=== PATIENT | male | born 1970 | race Caucasian/White ===

== ENCOUNTER 2020-06-27 10:57 | Outpatient (REF) | payer BC, SELFPAY ==
[2020-06-27 15:26] LABS: Alanine Aminotransferase 26 U/L (0-40); Albumin Level 4.4 g/dL (3.5-5.0); Alkaline Phosphatase 84 U/L (39-117); Anion Gap 17 (12-20); Aspartate Amino Transferase 21 U/L (5-37); Bilirubin Total 0.6 mg/dL (0.0-1.0); Blood Urea Nitrogen 17 mg/dL (9-16); Calcium 9.5 mg/dL (8.4-10.2); Carbon Dioxide 30 mmol/L (22-29); Chloride 97 mmol/L (96-108); Cholesterol 228 mg/dL; Estimated Glomerular Filt Rate > 60; Glucose Fasting 103 mg/dL (60-99); HDL Cholesterol 44 mg/dL; Potassium 4.2 mmol/l (3.3-5.1); Sodium 140 mmol/L (135-145); Total Protein 7.6 g/dL (6.5-8.0); Triglycerides 731 mg/dL; Uric Acid 11.6 mg/dL (3.4-7.0)
[2020-06-27 15:30] LABS: PSA,Total (Free>4and<10) 0.56 ng/mL (0.00-4.00); TSH reflex Free T4 1.18 mIU/mL (0.32-4.0)
== END 2020-06-27 10:58 | disposition home or self-care (01) ==
LOC: HO.HMGCLDS 10:57
PROVIDERS: PCP Family Medicine; Visit Provider Family Medicine
DX: Z00.00 Encounter for general adult medical examination without abnormal findings (principal); Z12.5 Encounter for screening for malignant neoplasm of prostate; M10.9 Gout, unspecified
CPT/HCPCS: 80053; 80061; 84153; 84443; 84550

== ENCOUNTER 2020-06-28 13:14 | Outpatient (REF) | payer BC, SELFPAY ==
[2020-06-29 13:26] LABS: Creatinine Urine 122.45 mg/dL
[2020-06-30 07:54] LABS: Microalbum/Creatinine Ratio Ur 17.1 ug/mg cr
== END 2020-06-28 13:15 | disposition home or self-care (01) ==
LOC: CF 13:14
PROVIDERS: PCP Family Medicine; Referring Provider Family Medicine; Visit Provider Surgery
DX: K42.9 Umbilical hernia without obstruction or gangrene (principal); F17.200 Nicotine dependence, unspecified, uncomplicated; Z79.899 Other long term (current) drug therapy
CPT/HCPCS: 82043

== ENCOUNTER 2020-07-25 06:07 | Day surgery (SDC) | payer BC, SELFPAY ==
[2020-07-15 11:16] VITALS: BMI 36.9
--- NOTE | 2020-07-20 09:46 | HO.ANESPROP2 ---
Documented by User: Heavenly Krissy 07/20/20 09:48 HPI - Anesthesia Eval Consult details Narrative: 49yo M for Hernia Repair Umbilical *ETOH* PMFSH Past Medical History Medical History Essential hypertension ETOH abuse Gout Hx of gout Hypertriglyceridemia Lab test negative for COVID-19 virus Obesity Smoker Family History Family History Maternal Grandmother History of mouth cancer Surgical History Surgical History No history of previous surgery Social History Social History Are you a primary care information associate to a significant other at home: No Do you presently have visiting nurse or other home services: No Alcohol intake: current Alcohol intake frequency: 3 or more drinks per day Alcohol type: beer and hard liquor Smoking Status: Current every day smoker Packs Per Day: 1 Cigarettes Per Day: 20.0 Years Smoked: 30 Smoked in Last 30 Days: Yes Patient Given Instructions on How to Stop Smoking: Yes Date Education Initiated: 07/15/20 Use of substances other than those prescribed or required for medical reasons: Yes Substance Use Type: Marijuana Substance Use Frequency: Occasionally Have you been hit, kicked, punched, or otherwise hurt by someone within the past year? If so, by whom?: No Advance Directives Information Provided: No Recently lost weight without trying: No Meds Allergies Allergy/AdvReac Type Severity Reaction Status Date / Time No Known Allergies Allergy Verified 07/15/20 11:23 [No Known Allergies*] Home Medications Medication Instructions Recorded Confirmed Type ibuprofen 200 mg tablet 400 mg PO Q8H 06/14/20 07/15/20 History Exam Exam Date and Time: July 20, 2020 0946 Height,Weight and Vital Signs: Height 5 ft 11 in Weight 120.202 kg Pertinent Lab Results Pertinent Lab Results: Laboratory Tests 06/27/20 11:04 Sodium 140 Potassium 4.2 Chloride 97 Carbon Dioxide 30 H BUN 17 H Creatinine 1.05 Assessment and Plan Assessment Anesthesia Assessment: Chart Reviewed Documented by User: Manjinder Gutierrez MD 07/25/20 07:47 PMFSH Past Medical History Medical History Essential hypertension ETOH abuse Gout Hx of gout Hypertriglyceridemia Lab test negative for COVID-19 virus Obesity Smoker Family History Family History Maternal Grandmother History of mouth cancer Surgical History Surgical History No history of previous surgery Social History Social History Are you a primary care information associate to a significant other at home: No Do you presently have visiting nurse or other home services: No Alcohol intake: current Alcohol intake frequency: 3 or more drinks per day Alcohol type: beer and hard liquor Smoking Status: Current every day smoker Packs Per Day: 1 Cigarettes Per Day: 20.0 Years Smoked: 30 Smoked in Last 30 Days: Yes Patient Given Instructions on How to Stop Smoking: Yes Date Education Initiated: 07/15/20 Use of substances other than those prescribed or required for medical reasons: Yes Substance Use Type: Marijuana Substance Use Frequency: Occasionally Have you been hit, kicked, punched, or otherwise hurt by someone within the past year? If so, by whom?: No Advance Directives Information Provided: No Recently lost weight without trying: No Meds Allergies Allergy/AdvReac Type Severity Reaction Status Date / Time No Known Allergies Allergy Verified 07/15/20 11:23 [No Known Allergies*] Home Medications Medication Instructions Recorded Confirmed Type ibuprofen 200 mg tablet 400 mg PO Q8H 06/14/20 07/15/20 History Exam Airway Mallampati Class: II TM Dist: >3cm Neck ROM: Full Denture: Upper Heart: RRR Lungs: Productive cough, runny nose Assessment and Plan Assessment Anesthesia Assessment: Anesthesia Plan Discussed and Chart Reviewed Final Anesthetic Review NPO: Yes ASA Class: III Final Preanesthetic Review: No Changes in Pt Med Stat, Meds/Allgs Chart Reviewed, Consent Obtained/Reviewed and Anes Risks/Benef Reviewed Patient Risk: Intermediate Procedure Risk: Low Anesthetic Plan Anesthetic Plan: GA Disposition: Standard PACU
[2020-07-25 06:31] VITALS: BP 123/97; PULSE 98; RESP 16; TEMP 36.3; O2SAT 97
[2020-07-25] MEDS: ceFAZolin Sodium/Dextrose,Iso 2 GM/50 ML PIGGYBACK IV (06:33)
[2020-07-25] MEDS: Lactated Ringers 1,000 ML 100 ML IVCONT (06:33)
--- NOTE | 2020-07-25 07:13 | MHC.SHP ---
Pre-Procedural Eval Section A The patient is an INPATIENT: No Changes since office visit: Yes Patient answered all questions; No Cold of Flu in the past 2 weeks, No New Medical Problems and No Changes in Medication The History & Physical has been completed within 30 days and I have reviewed it.: Yes Section B Chief Complaint: Umbilical Hernia Allergies: Allergies Allergy/AdvReac Type Severity Reaction Status Date / Time No Known Allergies Allergy Verified 07/15/20 11:23 [No Known Allergies*] Plan Diagnosis/Plan: Unchanged I have reviewed the history and physical and performed a pertinent physical examination on my patient. No changes have occurred unless specified.
--- NOTE | 2020-07-25 07:14 | W.PM.OPN ---
Operative Note Operative Note Date of Service: 07/25/20 Narrative: Preoperative diagnosis: Umbilical hernia Postoperative diagnosis: Same Procedure: Repair of umbilical hernia with mesh Surgeon: Deshawn Gottlieb MD Group Fitness Manager: JULIANNE Sloan Anesthesia: General LMA Indications for procedure: 49-year-old male patient presenting with a enlarging lump the umbilicus which is causing some discomfort. Examination is consistent with an umbilical hernia. Operative findings: Patient was found to have an incarcerated umbilical hernia containing omental fat. This was repaired using a 6.[address] mesh. Specimen: Hernia sac Estimated blood loss: 5 mL Complications: None Procedure details: Patient was brought to the OR and placed in a supine position. After administering general anesthesia the patient's abdomen was prepped with ChloraPrep and draped in a sterile fashion. A surgical time-out was called and consent confirmed. Patient received preoperative antibiotics and Venodyne boots were in place. Local anesthesia consisting of 0.75% Sensorcaine was then infiltrated the periumbilical region. A curvilinear incision was made around the umbilicus in the midline carried out through subcutaneous tissue and up to the hernia sac. The sac was dissected free from the surrounding subcutaneous tissue down to the fascial edge. The sac was entered and incarcerated omental fat encountered. This was a freed from the overlying peritoneal sac. The sac was sent to pathology for further examination. No fluid or ascites was encountered during the procedure. The omental fat was returned to the abdominal cavity. A preperitoneal space was then created using blunt dissection. The 6.4 cm circular mesh was then obtained. Four quadrants sutures consisting of 1. Tycron suture were placed at the 1236 and 9 o'clock position. This was then parachute into the abdominal preperitoneal space. The sutures were then tied. Special care was used to assure the mesh was lying flat against the fascia. Fascia was then closed over the mesh using [id number] 1. Tycron sutures incorporating the mesh in the closure. Wounds were then irrigated with saline and suctioned dry. Additional local was infiltrated in the subcutaneous and muscular tissue. Umbilical skin was then reattached to the fascia using a 3-0 Polysorb suture. Dermis was reapproximated using interrupted 3-0 Polysorb sutures. Skin was then closed using a running subcuticular 4-0 Polysorb suture. Steri-Strips 2 x 2 gauze and Tegaderm were then applied. The patient tolerated the procedure well. Sponge, instrument, needle counts reported as correct. The patient was transferred to PACU in stable condition.
--- NOTE | 2020-07-25 08:24 | P.BOP_ITS ---
Brief Operative Note Date of Service: 07/25/20 Pre-op diagnosis: Umbilical hernia Post-op diagnosis: same Procedure: Repair of umbilical hernia with mesh Implants: 6.4 cm round Ventralex mesh Surgeon: Deshawn Gottlieb MD Anesthesia: GLMA Plastic Molding Operator: [address] Estimated blood loss (mL): 5 Pathology: other (Hernia sac) Condition: stable Disposition: PACU
[2020-07-25 08:40] VITALS: BP 121/72; PULSE 105; RESP 20; TEMP 36.3; O2SAT 94
[2020-07-25 08:45] VITALS: BP 109/58; PULSE 99; RESP 16; O2SAT 94
[2020-07-25 08:50] VITALS: BP 125/73; PULSE 94; RESP 14; O2SAT 94
[2020-07-25 08:55] VITALS: BP 135/72; PULSE 94; RESP 18; O2SAT 93
[2020-07-25 09:10] VITALS: BP 117/73; PULSE 92; RESP 16; TEMP 36.3; O2SAT 96
[2020-07-25] MEDS: Acetaminophen 325 MG TABLET 650 MG PO (09:10)
[2020-07-25] MEDS: oxyCODONE HCl Immed Release 5 MG TABLET PO (09:20)
--- NOTE | 2020-07-25 09:55 | HO.POSTANES ---
Post Anesthesia Evaluation Post Anesthesia Evaluation Vital Signs: Vital Signs Temp Pulse Resp BP Pulse Ox 07/25/20 09:10 97.4 F 92 16 117/73 96 07/25/20 08:55 94 18 135/72 93 07/25/20 08:50 94 14 125/73 94 07/25/20 08:45 99 16 109/58 L 94 07/25/20 08:40 97.4 F 105 H 20 121/72 94 07/25/20 06:31 97.3 F 98 16 123/97 H 97 Anesthesia: General LMA Mental Status: Awake Pain Control: Satisfactory Nausea/Vomiting: None Hydration: Adequate Anesthesia-Related Issues: No Anes. Related Issues
== END 2020-07-25 09:37 | disposition home or self-care (01) ==
PROVIDERS: PCP Family Medicine; Visit Provider Surgery
PROC: (CPT 49587; principal; 2020-07-25 07:30)
DX: K46.0 Unspecified abdominal hernia with obstruction, without gangrene (principal); I10 Essential (primary) hypertension; E66.9 Obesity, unspecified; Z68.35 Body mass index [BMI] 35.0-35.9, adult; F17.210 Nicotine dependence, cigarettes, uncomplicated; F10.10 Alcohol abuse, uncomplicated
CPT/HCPCS: 49587; 88302; C1781; J0690; J1100; J2250; J2370; J2405; J3010

== ENCOUNTER → 2020-08-03 09:43 | Outpatient (BNVA) | payer BC, SELFPAY | PROVIDERS: PCP Family Medicine; Visit Provider Surgery | DX: Z76.89 Persons encountering health services in other specified circumstances (principal) ==

== ENCOUNTER 2020-08-12 09:53 | Outpatient (REF) | payer BC, SELFPAY ==
[2020-08-12 12:27] LABS: Alanine Aminotransferase 14 U/L (0-40); Albumin Level 4.5 g/dL (3.5-5.0); Alkaline Phosphatase 83 U/L (39-117); Anion Gap 18 (12-20); Aspartate Amino Transferase 15 U/L (5-37); Bilirubin Total 0.5 mg/dL (0.0-1.0); Blood Urea Nitrogen 17 mg/dL (9-16); Calcium 9.6 mg/dL (8.4-10.2); Carbon Dioxide 26 mmol/L (22-29); Chloride 100 mmol/L (96-108); Cholesterol 241 mg/dL; Estimated Glomerular Filt Rate > 60; Glucose Fasting 96 mg/dL (60-99); HDL Cholesterol 46 mg/dL; LDL Cholesterol Calculated 146 mg/dl; Potassium 4.8 mmol/l (3.3-5.1); Sodium 139 mmol/L (135-145); Total Protein 7.4 g/dL (6.5-8.0); Triglycerides 247 mg/dL; Uric Acid 6.2 mg/dL (3.4-7.0)
== END 2020-08-12 09:54 | disposition home or self-care (01) ==
LOC: HO.HMGCLDS 09:53
PROVIDERS: PCP Family Medicine; Visit Provider Family Medicine
DX: Z00.00 Encounter for general adult medical examination without abnormal findings (principal); M10.9 Gout, unspecified; E78.1 Pure hyperglyceridemia
CPT/HCPCS: 36415; 80053; 80061; 84550

== ENCOUNTER 2021-01-20 09:20 | Outpatient (REF) | payer BC, SELFPAY ==
[2021-01-20 11:43] LABS: Alanine Aminotransferase 9 U/L (0-40); Albumin Level 4.5 g/dL (3.5-5.0); Alkaline Phosphatase 93 U/L (39-117); Anion Gap 17 (12-20); Aspartate Amino Transferase 16 U/L (5-37); Bilirubin Total 0.2 mg/dL (0.0-1.0); Blood Urea Nitrogen 13 mg/dL (9-16); Calcium 9.3 mg/dL (8.4-10.2); Carbon Dioxide 23 mmol/L (22-29); Chloride 103 mmol/L (96-108); Cholesterol 221 mg/dL; Estimated Glomerular Filt Rate > 60; Glucose Fasting 87 mg/dL (60-99); HDL Cholesterol 46 mg/dL; LDL Cholesterol Calculated 121 mg/dl; Potassium 4.5 mmol/L (3.3-5.1); Sodium 138 mmol/L (135-145); Total Protein 7.5 g/dL (6.5-8.0); Triglycerides 272 mg/dL
== END 2021-01-20 09:21 | disposition home or self-care (01) ==
LOC: HO.HMGCLDS 09:20
PROVIDERS: PCP Family Medicine; Visit Provider Family Medicine
DX: Z00.00 Encounter for general adult medical examination without abnormal findings (principal); I10 Essential (primary) hypertension; E78.1 Pure hyperglyceridemia; M10.9 Gout, unspecified
CPT/HCPCS: 36415; 80053; 80061; 84550

== ENCOUNTER 2021-02-21 12:41 | Outpatient (REF) | payer BC, SELFPAY ==
[2021-02-21 14:18] LABS: Cholesterol 202 mg/dL; HDL Cholesterol 46 mg/dL; LDL Cholesterol Calculated 110 mg/dl; Triglycerides 231 mg/dL; Uric Acid 3.9 mg/dL (3.4-7.0)
== END 2021-02-21 12:42 | disposition home or self-care (01) ==
LOC: HO.HMGCLDS 12:41
PROVIDERS: PCP Family Medicine; Visit Provider Family Medicine
DX: Z00.00 Encounter for general adult medical examination without abnormal findings (principal); E78.1 Pure hyperglyceridemia; M10.9 Gout, unspecified
CPT/HCPCS: 36415; 80061; 84550

== ENCOUNTER 2022-09-26 06:32 | Emergency (ER) | payer BC, SELFPAY ==
--- NOTE | ~2022-09-26 | CT_ITS ---
EXAMINATION: CT ABDOMEN AND PELVIS WITHOUT CONTRAST CLINICAL INFORMATION: Left flank pain. COMPARISON: CT scan of the abdomen and pelvis dated 11/17/2012. TECHNIQUE: Multidetector volumetric imaging was performed from the superior aspect of the liver through the pubic symphysis. Sagittal and coronal reformatted images were obtained on the technologist's workstation. Lack of intravenous and oral contrast limits visceral evaluation. This CT examination was performed using dose optimization techniques as appropriate, variously including the following: *Automated exposure control *Adjustment of mA and/or kV according to patient size (this includes techniques or standardized protocols for targeted exams where dose is matched to indication/reason for exam; i.e. extremities or head) *Use of iterative reconstruction technique DLP: 932 mGy-cm FINDINGS: LUNG BASES: The visualized lung bases are unremarkable. LIVER, GALLBLADDER, AND BILIARY TREE: Unremarkable. PANCREAS: Unremarkable. SPLEEN: Unremarkable. ADRENAL GLANDS: Unremarkable. 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 1.5 cm low-attenuation focus in the left kidney (image 85, series 6). BLADDER: Unremarkable. GASTROINTESTINAL TRACT: Very small hiatal hernia. The remainder of the stomach is unremarkable. The small bowel and appendix are unremarkable. Mild diverticulosis is seen in the colon most pronounced distally without ABDOMINAL WALL: No significant hernia is appreciated. LYMPH NODES: No lymphadenopathy. VASCULAR: Unremarkable. PELVIC VISCERA: Unremarkable. OSSEOUS STRUCTURES: Mild to moderate multilevel degenerative changes in the thoracolumbar spine most pronounced at L5-S1. CT/CT abdomen pelvis wo IV con IMPRESSION: 1. No acute intra-abdominal/pelvic abnormality to explain the patient's pain. No nephrolithiasis or hydroureteronephrosis. 1.5 cm low-attenuation focus in the left kidney is too small adequately characterize, but demonstrates benign features and likely represents a cyst not requiring follow-up at this time. 2. Very small hiatal hernia. 3. Mild colonic diverticulosis without evidence for acute diverticulitis.
[2022-09-26 07:12] VITALS: BP 158/91; PULSE 84; RESP 20; TEMP 36.4; O2SAT 97; BMI 37.6
[2022-09-26 07:27] LABS: MANUAL DIFF FLAG NO
[2022-09-26 07:32] LABS: Basophils Absolute Auto 0.1 X10*3/uL (0.0-0.2); Basophils Percent Auto 0.5 % (0-2); Eosinophils Absolute Auto 0.3 X10*3/uL (0.0-0.4); Eosinophils Percent Auto 2.3 % (0-4); Hematocrit 44.5 % (42.0-52.0); Imm Gran Abs Auto 0.07 X10*3/uL (0.00-0.03); Imm Gran Pct Auto 0.6 % (0.0-0.4); Lymphocytes Absolute Auto 2.3 X10*3/uL (1.2-4.9); Lymphocytes Percent Auto 18.4 % (20-40); Mean Corpuscular HGB Conc 33.7 g/dl (31.0-36.0); Mean Corpuscular Hemoglobin 30.4 pg (27.0-33.0); Mean Corpuscular Volume 90.1 fL (80.0-98.0); Mean Platelet Volume 8.5 fL (9.4-12.4); Monocytes Absolute Auto 1.2 X10*3/uL (0.1-1.2); Monocytes Percent Auto 9.5 % (2-11); Neutrophils Absolute Auto 8.6 x10*3/uL (2.0-8.3); Neutrophils Percent Auto 68.7 % (45-73); Platelet Count 397 X10*3/uL (160-400); Red Blood Count 4.94 X10*6/uL (4.60-5.80); Red Cell Distribution Width 13.8 % (11.0-16.0); White Blood Count 12.5 X10*3/uL (4.8-10.8)
[2022-09-26 07:40] LABS: Ethanol < 10 mg/dL
[2022-09-26 07:44] LABS: Alanine Aminotransferase 21 U/L (0-40); Albumin Level 4.2 g/dL (3.5-5.0); Alkaline Phosphatase 86 U/L (39-117); Anion Gap 16 (12-20); Aspartate Amino Transferase 18 U/L (5-37); Bilirubin Direct < 0.2 mg/dL (0.0-0.5); Bilirubin Total 0.4 mg/dL (0.0-1.0); Blood Urea Nitrogen 12 mg/dL (9-16); Calcium 9.4 mg/dL (8.4-10.2); Carbon Dioxide 25 mmol/L (22-29); Chloride 103 mmol/L (96-108); Creatinine Clr Calc Pharmacy 118.5; Estimated Glomerular Filt Rate > 60; Glucose Random 105 mg/dL (60-115); Lipase 18 U/L (8-78); Potassium 4.7 mmol/L (3.3-5.1); Sodium 139 mmol/L (135-145); Total Protein 7.1 g/dL (6.5-8.0)
[2022-09-26 08:32] VITALS: BP 144/84; PULSE 80; RESP 16; TEMP 36.3; O2SAT 96
[2022-09-26 10:52] VITALS: BP 171/81; PULSE 84; RESP 20; TEMP 37; O2SAT 97
--- NOTE | 2022-09-26 10:58 | ECG_ITS ---
Test Reason : CHEST PAIN Blood Pressure : / mmHG Vent. Rate : 086 BPM Atrial Rate : 086 BPM P-R Int : 136 ms QRS Dur : 094 ms QT Int : 348 ms P-R-T Axes : 054 046 068 degrees QTc Int : 416 ms Normal sinus rhythm Normal ECG No previous ECGs available Referred By: Sarbjit Andrews Electronically Signed By:SABA COBB MD
--- NOTE | 2022-09-26 11:08 | ED.ABDPAIN ---
HPI - Abdominal Pain General Chief Complaint: Abdominal Pain Stated Complaint: Rib pain/No Inj Time Seen by Provider: 09/26/22 10:19 Source: patient and old records reviewed Limitations: no limitations History of Present Illness HPI narrative: Patient is complaining of left upper abdominal pain which started a few days ago. It is now radiating to his left flank. No lower abdominal pain. It hurts when he moves. No nausea vomiting diarrhea constipation. No urinary symptoms. No prior history of similar issues. He states he is a daily drinker. No prior history of pancreatitis or hepatitis. No history of kidney stones He does have a history of gout. Daily smoker. Related Data Previous Rx's Medication Instructions Recorded indomethacin 50 mg capsule 50 mg PO TID 10 days #30 caps 08/12/20 prednisone 10 mg tablet See Rx Instructions PO DAILY 10 01/19/21 days #28 tabs allopurinol 300 mg tablet 300 mg PO DAILY 30 days #30 tabs 09/11/21 chlorthalidone 25 mg tablet 25 mg PO DAILY #30 tabs 09/11/21 gemfibrozil 600 mg tablet 600 mg PO BID #60 tabs 09/11/21 lisinopril 20 mg tablet 20 mg PO DAILY #30 tabs 10/09/21 cyclobenzaprine 10 mg tablet 10 mg PO TID PRN muscle spasm #20 09/26/22 tabs ibuprofen 800 mg tablet 800 mg PO Q8H PRN pain #30 tabs 09/26/22 Allergies Allergy/AdvReac Type Severity Reaction Status Date / Time No Known Allergies Allergy Verified 01/19/21 15:49 [No Known Allergies*] Review of Systems Comments: No fevers or chills Comments: No anterior chest pain Comments: No cough or dyspnea Comments: Abdominal pain is described Comments: No urinary symptoms Comments: Pain is described with movement. No midline CTL or S spine pain Comments: No rash Comments: No weakness PMFSH Past Medical History Medical History Essential hypertension ETOH abuse Gout Hx of gout Hypertriglyceridemia Lab test negative for COVID-19 virus Obesity Smoker Surgical History History of hernia surgery No history of previous surgery Family History Family History Maternal Grandmother History of mouth cancer Social History Social History Housing: Apartment Are you a primary spiritual care coordinator to a significant other at home: No Do you presently have visiting nurse or other home services: No Alcohol intake: current Alcohol intake frequency: 3 or more drinks per day Alcohol type: beer and hard liquor Patient Tobacco Use Status: Current everyday Tobacco user Cigarette Packs Per Day: 1 Cigarettes Per Day: 20.0 Years Smoked: 30 Smoked in Last 30 Days: Yes Substance Use Type: Crack/Cocaine and Marijuana Advance Directives: No Advance Directives Information Provided: No service: No Current occupational status: employed Physical Exam ED Vital Signs: Vital Signs - 24 hr 09/26/22 07:12 09/26/22 08:32 09/26/22 10:52 Temperature 97.5 F 97.4 F 98.6 F Pulse Rate 84 80 84 Respiratory Rate 20 16 20 Blood Pressure 158/91 H 144/84 H 171/81 H Pulse Oximetry 97 96 97 Oxygen Delivery Method Room Air Room Air Room Air 09/26/22 11:47 Temperature Pulse Rate 90 Respiratory Rate 20 Blood Pressure 139/85 Pulse Oximetry 96 Oxygen Delivery Method Room Air BMI result Body Mass Index 37.6 Const Other: Awake alert. Standing ambulatory without difficulty. No acute distress Neck Other: Normal Resp Other: Clear and equal bilaterally without wheezes rales or rhonchi Cardio Other: Regular rate and rhythm without murmurs rubs or gallops GI Other: Mild tenderness left upper abdomen near the costophrenic border. Some left flank tenderness to percussion. Pain is reproducible with palpation over the left thoracic paraspinous muscle at the level of T10. Skin Other: No rash Medical Decision Making Medical Decision Making MDM Narrative: Patient with left upper and left flank pain. Differential would include musculoskeletal pain, nephrolithiasis, pyelonephritis, urinary tract infection, pancreatitis, pneumonia, atypical cardiac presentation. 11:11. Lab work shows mildly elevated white count. Chemistries including lipase and LFTs are normal Awake EKG, troponin. CT scan ordered to rule out kidney stone or other pathology. 13:42. CT scan is normal. Urinalysis is normal. Labs are unremarkable. Patient stable for discharge home with a final diagnosis of musculoskeletal pain, flank and upper abdomen Lab Data 09/26/22 07:23 09/26/22 07:23 Labs: Lab Results 09/26/22 09/26/22 09/26/22 Range/Units 07:23 07:23 07:23 WBC 12.5 H (4.8-10.8) X10*3/uL RBC 4.94 (4.60-5.80) X10*6/uL Hgb 15.0 (14.0-18.0) g/dl Hct 44.5 (42.0-52.0) % MCV 90.1 (80.0-98.0) fL MCH 30.4 (27.0-33.0) pg MCHC 33.7 (31.0-36.0) g/dl RDW 13.8 (11.0-16.0) % Plt Count 397 (160-400) X10*3/uL MPV 8.5 L (9.4-12.4) fL Immature Gran % (Auto) 0.6 H (0.0-0.4) % Neut % (Auto) 68.7 (45-73) % Lymph % (Auto) 18.4 L (20-40) % [place] % (Auto) 9.5 (2-11) % Eos % (Auto) 2.3 (0-4) % Baso % (Auto) 0.5 (0-2) % Lymph # (Auto) 2.3 (1.2-4.9) X10*3/uL [place] # (Auto) 1.2 (0.1-1.2) X10*3/uL Eos # (Auto) 0.3 (0.0-0.4) X10*3/uL Baso # (Auto) 0.1 (0.0-0.2) X10*3/uL Abs Immat Gran (auto) 0.07 H (0.00-0.03) X10*3/uL Absolute Neuts (auto) 8.6 H (2.0-8.3) x10*3/uL Absolute Nucleated RBC 0.000 (0.0-0.012) X10*3/uL Nucleated RBC % (auto) 0.0 (0.0-0.2) /100WBC Sodium 139 (135-145) mmol/L Potassium 4.7 (3.3-5.1) mmol/L Chloride 103 (96-108) mmol/L Carbon Dioxide 25 (22-29) mmol/L Anion Gap 16 (12-20) BUN 12 (9-16) mg/dL Creatinine 0.96 (0.5-1.4) mg/dL Estim Creat Clear Calc 118.5 Estimated GFR > 60 Random Glucose 105 (60-115) mg/dL Calcium 9.4 (8.4-10.2) mg/dL Total Bilirubin 0.4 (0.0-1.0) mg/dL Direct Bilirubin < 0.2 (0.0-0.5) mg/dL AST 18 (5-37) U/L ALT 21 (0-40) U/L Alkaline Phosphatase 86 (39-117) U/L Total Protein 7.1 (6.5-8.0) g/dL Albumin 4.2 (3.5-5.0) g/dL Lipase 18 (8-78) U/L Urine Color Urine Appearance Urine pH (5.0-9.0) Ur Specific [place] (1.005-1.025) Urine Protein (Neg-Trace) mg/dL Urine Glucose (UA) (Negative) mg/dL Urine Ketones (Negative) mg/dL Urine Blood (Negative) Urine Nitrite (Negative) Ur Leukocyte Esterase (Negative) Ethyl Alcohol < 10 mg/dL 09/26/22 Range/Units 13:32 WBC (4.8-10.8) X10*3/uL RBC (4.60-5.80) X10*6/uL Hgb (14.0-18.0) g/dl Hct (42.0-52.0) % MCV (80.0-98.0) fL MCH (27.0-33.0) pg MCHC (31.0-36.0) g/dl RDW (11.0-16.0) % Plt Count (160-400) X10*3/uL MPV (9.4-12.4) fL Immature Gran % (Auto) (0.0-0.4) % Neut % (Auto) (45-73) % Lymph % (Auto) (20-40) % [place] % (Auto) (2-11) % Eos % (Auto) (0-4) % Baso % (Auto) (0-2) % Lymph # (Auto) (1.2-4.9) X10*3/uL [place] # (Auto) (0.1-1.2) X10*3/uL Eos # (Auto) (0.0-0.4) X10*3/uL Baso # (Auto) (0.0-0.2) X10*3/uL Abs Immat Gran (auto) (0.00-0.03) X10*3/uL Absolute Neuts (auto) (2.0-8.3) x10*3/uL Absolute Nucleated RBC (0.0-0.012) X10*3/uL Nucleated RBC % (auto) (0.0-0.2) /100WBC Sodium (135-145) mmol/L Potassium (3.3-5.1) mmol/L Chloride (96-108) mmol/L Carbon Dioxide (22-29) mmol/L Anion Gap (12-20) BUN (9-16) mg/dL Creatinine (0.5-1.4) mg/dL Estim Creat Clear Calc Estimated GFR Random Glucose (60-115) mg/dL Calcium (8.4-10.2) mg/dL Total Bilirubin (0.0-1.0) mg/dL Direct Bilirubin (0.0-0.5) mg/dL AST (5-37) U/L ALT (0-40) U/L Alkaline Phosphatase (39-117) U/L Total Protein (6.5-8.0) g/dL Albumin (3.5-5.0) g/dL Lipase (8-78) U/L Urine Color Yellow Urine Appearance Turbid Urine pH 5.5 (5.0-9.0) Ur Specific [place] 1.020 (1.005-1.025) Urine Protein Negative (Neg-Trace) mg/dL Urine Glucose (UA) Negative (Negative) mg/dL Urine Ketones Negative (Negative) mg/dL Urine Blood Negative (Negative) Urine Nitrite Negative (Negative) Ur Leukocyte Esterase Negative (Negative) Ethyl Alcohol mg/dL Medications Administered Discontinued Medications Generic Name Dose Route Start Last Admin Trade Name Freq PRN Reason Stop Dose Admin Ketorolac Tromethamine 30 mg 09/26/22 10:56 09/26/22 11:35 Ketorolac Tromethamine 30 Mg/Ml Vial IM 09/26/22 10:57 30 mg ONCE ONE Administration Discharge Plan Discharge Clinical Impression: Back pain of thoracolumbar region Patient Disposition: Home, Self-Care Instructions: Thoracic Pain (ED), Back Pain (ED) Additional Instructions: Ibuprofen for pain and inflammation. Flexeril as a muscle relaxant. Flexeril continue drowsy, do not drive if you are taking this Prescriptions: New ibuprofen 800 mg tablet 800 mg PO Q8H PRN (Reason: pain) Qty: 30 0RF cyclobenzaprine 10 mg tablet 10 mg PO TID PRN (Reason: muscle spasm) Qty: 20 0RF No Action gemfibrozil 600 mg tablet 600 mg PO BID Qty: 60 0RF Rx Instructions: PCP appt needed chlorthalidone 25 mg tablet 25 mg PO DAILY Qty: 30 0RF Rx Instructions: PCP appt needed allopurinol 300 mg tablet 300 mg PO DAILY 30 Days Qty: 30 0RF Rx Instructions: PCP appt needed lisinopril 20 mg tablet 20 mg PO DAILY Qty: 30 0RF indomethacin 50 mg capsule 50 mg PO TID 10 Days Qty: 30 0RF Rx Instructions: administer with food or milk prednisone 10 mg tablet See Rx Instructions PO DAILY 10 Days Qty: 28 0RF Rx Instructions: 4 tabs daily for 4 days, 3 tabs daily for 2 days, 2 tabs daily for 2 days, 1 tab daily for 2 days PO daily;
[2022-09-26] MEDS: Ketorolac Tromethamine 30 MG/ML VIAL IM (11:35)
[2022-09-26 11:47] VITALS: BP 139/85; PULSE 90; RESP 20; O2SAT 96
[2022-09-26 13:38] LABS: Appearance Urine Turbid; Color Urine Yellow; Glucose Urine UA Negative (Negative); Leukocyte Esterase Urine Negative (Negative); Nitrite Urine Negative (Negative); PH 5.5 (5.0-9.0); Urine Blood Negative (Negative); Urine Ketones Negative (Negative); Urine Protein Negative (Neg-Trace)
== END 2022-09-26 13:54 | disposition home or self-care (01) ==
PROVIDERS: Emergency Provider Emergency Medicine; PCP Hospitalist
DX: M54.6 Pain in thoracic spine (principal); R10.9 Unspecified abdominal pain; I10 Essential (primary) hypertension; F17.210 Nicotine dependence, cigarettes, uncomplicated; Z79.899 Other long term (current) drug therapy
CPT/HCPCS: 36415; 74176; 80048; 80076; 81003; 82077; 83690; 85025; 93005; 96372; 99284; 99285; J1885